=== PATIENT | male | born 1980 | race African-American/Black ===

== ENCOUNTER 2020-10-24 08:39 | Observation (INO) | payer MEDICARE, MEDICAID ==
[2020-10-24] MEDS ORDERED: Ondansetron PF 4 MG/2 ML Vial ONE (08:55)
[2020-10-24] MEDS ORDERED: Morphine 4 MG/ML VIAL ONE ×2 (08:55→09:30)
[2020-10-24 09:25] LABS: Hemoglobin 13.1 g/dL (14.0-18.0); Mean Corpuscular HGB CONC 34.4 g/dL (32.0-36.0); Mean Corpuscular Hemoglobin 32.3 pg (27.0-31.0); Mean Corpuscular Volume 94.1 fL (78.0-98.0); RBC Distribution Width 12.8 % (11.5-14.5); Red Blood Cell (RBC) Count 4.06 mill/uL (4.70-6.10)
[2020-10-24 09:38] LABS: ALT (SGPT) 21 U/L (8-55); AST (SGOT) 29 U/L (5-34); Alkaline Phosphatase 58 U/L (40-110); Anion Gap 14 mmol/L (10-20); BUN (Urea Nitrogen) 15 mg/dL (8.9-20.6); Calc. Creatinine Clearance 0 mL/min (70-130); Calcium 9.3 mg/dL (7.8-10.44); Carbon Dioxide 30 mmol/L (22-29); Chloride 100 mmol/L (98-107); Globulin 2.8 g/dL (2.4-3.5); Glucose 142 mg/dL (70-105); Potassium 4.3 mmol/L (3.5-5.1); Protein, Total 6.8 g/dL (6.0-8.3); Sodium 140 mmol/L (136-145)
[2020-10-24 09:45] LABS: Bacteria/HPF None Seen HPF (None Seen); Bilirubin Negative (Negative); Blood, Urine Negative (Negative); Clarity Clear (Clear); Glucose, Urine (Dipstick) Normal (Negative); Ketone, Urine Negative (Negative); Leukocyte 75 Leu/uL (Negative); Nitrite Negative (Negative); Protein, Urine (Dipstick) 10 mg/dL (Neg-Trace); RBC/HPF 0-3 HPF (0-3); Specific Gravity, Urine 1.014 (1.002-1.036); Squamous Epithelial 0-3 HPF (0-3); Urobilinogen Normal mg/dL (Less than 2)
[2020-10-24 09:50] LABS: #Basophils 0.1 thou/uL (0.0-0.2); #Eosinphils 0.2 thou/uL (0.0-0.7); #Lymphocytes 1.8 thou/uL (1.20-3.40); #Monocytes 0.9 thou/uL (0.11-0.59); #Neutrophils 11.1 thou/uL (1.40-6.50); %Basophils 0.7 % (0.0-1.0); %Eosinophils 1.2 % (0.0-10.0); %Lymphocytes 12.6 % (21.0-51.0); %Monocytes 6.7 % (0.0-10.0); %Neutrophils 78.9 % (42.0-75.0); Large Platelets SLIGHT; MDiff Complete? YES; Mean Platelet Volume 10.4 fL (7.4-10.4); Platelet Count 147 thou/uL (130-400); Platelet Morphology Comment Appears Adequate
[2020-10-24] MEDS ORDERED: HYDROcodone/Acetaminophen 5/325 mg Tablet ONE (12:07)
[2020-10-24] MEDS ORDERED: HYDROcodone/Acetaminophen 5/325 mg Tablet PO PRN (13:21)
[2020-10-24] MEDS ORDERED: Ondansetron PF 4 MG/2 ML Vial IVP PRN (13:21)
[2020-10-24] MEDS ORDERED: Zolpidem Tartrate 5 MG TAB PO PRN (13:21)
[2020-10-24] MEDS ORDERED: D5 1/2 NS w/20 mEq KCL 1,000 ML IV SCH (13:21)
[2020-10-24] MEDS ORDERED: hydrALAZINE 20 MG/ML VIAL SLOW IVP PRN (13:21)
[2020-10-24] MEDS ORDERED: diphenhydrAMINE 50 MG/ML VIAL IVP PRN (13:21)
[2020-10-24] MEDS: Morphine 4 MG/ML VIAL SLOW IVP PRN ×2 (13:39→17:10)
[2020-10-24] MEDS: Ketorolac Tromethamine 30 MG/ML VIAL IVP SCH ×2 (13:40→17:56)
[2020-10-24] MEDS ORDERED: ceFAZolin 1 GM/D5W 1 GM in Premix Bag 1 BAG IVPB SCH (13:45)
[2020-10-24 13:51] VITALS: BMI 30.2
[2020-10-24 16:25] VITALS: BP 109/74; TEMP 98
== END 2020-10-24 19:18 | disposition home or self-care (01) ==
LOC: ERS 08:39 → SJJU 13:21
PROVIDERS: ADMIT Urology; ATTEND Urology
DX: N48.39 Other priapism (principal); I11.0 Hypertensive heart disease with heart failure; I50.9 Heart failure, unspecified; Z79.899 Other long term (current) drug therapy; Z88.8 Allergy status to other drugs, medicaments and biological substances; Z98.890 Other specified postprocedural states
CPT/HCPCS: 80053; 81003; 81015; 85025; 96365; 96374; 96375; 96376; G0378; J0690; J1885; J2270; J2405; J3480

== ENCOUNTER 2020-10-25 15:03 | Emergency (ER) | payer MEDICARE, MEDICAID | END 2020-10-25 15:55 | disposition home or self-care (01) | LOC: ERS 15:03 | DX: S30.812A Abrasion of penis, initial encounter (principal); I50.9 Heart failure, unspecified; Z79.899 Other long term (current) drug therapy; W23.0XXA Caught, crushed, jammed, or pinched between moving objects, initial encounter | CPT/HCPCS: 99283 ==

== ENCOUNTER 2020-10-26 06:39 | Observation (INO) | payer MEDICARE, MEDICAID ==
[2020-10-26] MEDS ORDERED: PHENYLEPHRINE FS SCH (07:15)
[2020-10-26] MEDS ORDERED: SODIUM CHLORIDE 0.9% FS SCH (07:15)
[2020-10-26] MEDS ORDERED: Morphine 4 MG/ML VIAL ONE ×2 (07:21→08:59)
[2020-10-26] MEDS ORDERED: Fentanyl 100 MCG/2 ML VIAL ONE ×2 (09:28→11:17)
[2020-10-26] MEDS ORDERED: Lidocaine 1% w/Epinephrine 1:100K 20 ML VIAL ONE (09:35)
[2020-10-26] MEDS ORDERED: Bupivacaine 0.25% HCL 30 ML VIAL ONE (09:35)
[2020-10-26] MEDS ORDERED: Bacitracin Zinc Ointment 30 gm TUBE ONE (09:36)
[2020-10-26] MEDS ORDERED: Dexamethasone 20 MG/5 ML VIAL ONE (10:06)
[2020-10-26] MEDS ORDERED: Ondansetron PF 4 MG/2 ML Vial ONE (10:06)
[2020-10-26] MEDS ORDERED: PROPOFOL 200 MG/20 ML VIAL ONE (10:06)
[2020-10-26] MEDS ORDERED: Lidocaine 1% PF 5 ML VIAL ONE (10:06)
[2020-10-26] MEDS ORDERED: Ketorolac Tromethamine 30 MG/ML VIAL ONE (10:06)
[2020-10-26] MEDS ORDERED: PHENYLEPHRINE-NS 100 MCG/ML 10 ML SYRINGE ONE (10:06)
[2020-10-26] MEDS ORDERED: Famotidine/PF 20 mg/2ml Vial ONE (10:28)
[2020-10-26] MEDS ORDERED: Promethazine HCl 25 MG/ML VIAL IM PRN (10:47)
[2020-10-26] MEDS ORDERED: Ondansetron HCl/PF 4 MG/2 ML Vial IVP PRN (10:47)
[2020-10-26] MEDS ORDERED: Promethazine HCl 25 MG/ML VIAL IVPB PRN (10:47)
[2020-10-26] MEDS ORDERED: Ondansetron PF 4 MG/2 ML Vial IVP PRN (11:12)
[2020-10-26] MEDS ORDERED: Zolpidem Tartrate 5 MG TAB PO PRN (11:12)
[2020-10-26] MEDS ORDERED: hydrALAZINE 20 MG/ML VIAL SLOW IVP PRN (11:12)
[2020-10-26] MEDS ORDERED: diphenhydrAMINE 50 MG/ML VIAL IVP PRN (11:12)
[2020-10-26] MEDS ORDERED: CEFAZOLIN 2 GM in Premix Bag 1 BAG IVPB SCH (12:30)
[2020-10-26] MEDS: Morphine 4 MG/ML VIAL SLOW IVP PRN ×5 (12:46→21:26)
[2020-10-26] MEDS: HYDROcodone/Acetaminophen 5/325 mg Tablet PO PRN ×3 (12:46→20:15)
[2020-10-26 14:33] VITALS: BMI 30.2
[2020-10-26] MEDS: Sodium Chloride 0.9% 1,000 ML IV SCH (14:34)
[2020-10-26] MEDS: Bumetanide 1 MG TAB PO SCH (14:34)
[2020-10-26] MEDS: Ketorolac Tromethamine 30 MG/ML VIAL IVP PRN ×2 (14:59→21:27)
[2020-10-26] MEDS: Sacubitril 49 MG/Valsartan 51 MG TABLET PO SCH (20:16)
[2020-10-26] MEDS: Carvedilol 25 MG TAB PO SCH (20:17)
[2020-10-26] MEDS: Docusate 100 MG CAP PO SCH (20:17)
[2020-10-26] MEDS: Potassium Chloride 10 MEQ TAB PO SCH (20:18)
[2020-10-27] MEDS: HYDROcodone/Acetaminophen 5/325 mg Tablet PO PRN ×4 (00:09→11:27)
[2020-10-27] MEDS: Morphine 4 MG/ML VIAL SLOW IVP PRN ×3 (02:08→11:22)
[2020-10-27] MEDS: Sodium Chloride 0.9% 1,000 ML IV SCH ×2 (02:12→07:47)
[2020-10-27] MEDS: Ketorolac Tromethamine 30 MG/ML VIAL IVP PRN (06:34)
[2020-10-27] MEDS: Carvedilol 25 MG TAB PO SCH (07:46)
[2020-10-27] MEDS: Sacubitril 49 MG/Valsartan 51 MG TABLET PO SCH (08:01)
[2020-10-27] MEDS: Potassium Chloride 10 MEQ TAB PO SCH (08:01)
[2020-10-27] MEDS: Bumetanide 1 MG TAB PO SCH ×2 (08:01→14:45)
[2020-10-27] MEDS: Docusate 100 MG CAP PO SCH (08:01)
[2020-10-27] MEDS ORDERED: Spironolactone 25 MG TAB PO SCH (09:00)
[2020-10-27 11:48] VITALS: BP 102/72; TEMP 98.2
== END 2020-10-27 16:50 | disposition home or self-care (01) ==
LOC: ERS 06:39 → SDC 10:00 → SURG B 10:05 → SURG A 17:45
PROVIDERS: ADMIT Urology; ATTEND Urology
PROC: 0VQS3ZZ Repair Penis, Percutaneous Approach (ICD-10-PCS; principal; 2020-10-26)
DX: N48.39 Other priapism (principal); I10 Essential (primary) hypertension; F14.11 Cocaine abuse, in remission; Z79.899 Other long term (current) drug therapy; Z98.890 Other specified postprocedural states
CPT/HCPCS: 54435; 96374; 96375; 96376 ×3; 99285; G0378 ×2; J1100; J1885; J2270; J2370; J2405; J2704; J3010; S0020; S0028

== ENCOUNTER 2020-11-01 12:53 | Emergency (ER) | payer MEDICARE, MEDICAID ==
[2020-11-01] MEDS ORDERED: HYDROcodone/Acetaminophen 10/325 mg Tablet ONE (14:24)
== END 2020-11-01 17:04 | disposition home or self-care (01) ==
LOC: ERS 12:53
DX: N48.30 Priapism, unspecified (principal); I11.0 Hypertensive heart disease with heart failure; I50.9 Heart failure, unspecified; Z79.899 Other long term (current) drug therapy
CPT/HCPCS: 99283